=== PATIENT | female | born 1970 | race African-American/Black ===

== ENCOUNTER 2018-03-12 00:27 | Inpatient (IN) | payer BC ==
[~2018-03-12] VITALS: Ht 165.1 cm; Wt 130.5 kg
--- NOTE | ~2018-03-12 | P ---
[facility] [place] [address] PROCEDURE REPORT Name: RAVINDRA AKBA Room #: 449-I [facility] IN .R.#: [id number] Admission: 03/13/18 Attend Phys: Damaris Clay Discharge: Date of : 66 Report #: [id number] THIS REPORT FOR: //name// CC: JAMI Clay BRIEF HISTORY: The patient is a 48-year-old woman with atypical chest pain. PREOPERATIVE DIAGNOSIS: Atypical chest pain. POSTOPERATIVE DIAGNOSES: 1. Grade A erosive esophagitis. 2. Small hiatus hernia. 3. Gastric erosions. MEDICATIONS: Deep sedation with propofol for anesthesia. SPECIMEN: Biopsies of gastric erosions. ESTIMATED BLOOD LOSS: 3 mL. PROCEDURE: EGD with biopsy. FINDINGS: Prior to propofol sedation, procedure of upper endoscopy was discussed with the patient as well as potential risks and its complications. She indicates she understands and desires to proceed. DESCRIPTION OF PROCEDURE: With the patient in left lateral decubitus position, the Olympus video endoscope was inserted in the cervical esophagus under direct vision without difficulty. Examination of this organ through its entire length revealed normal esophageal mucosa down the squamocolumnar junction and in squamocolumnar junction, an erosive column was seen consistent with grade A esophagitis. No strictures or masses were seen. A 2 cm sliding type hiatus hernia was seen as well. The mucosa in the hernia was normal. Scope was advanced into the stomach, was examined on end view as well as retroflexed views. In the antrum, there were several linear erosions. It is noted the patient has been using ibuprofen and also uses BC powder from time to time. A discrete ulcer was not seen. Upon retroflexion, no mass lesions were seen. The pylorus, duodenal bulb and postbulbar sweep were all inspected and noted to be within normal limits. At that point, the scope was slowly withdrawn and careful circumferential views confirmed the above findings. The patient tolerated the procedure well. Biopsies obtained of the gastric mucosa to evaluate for Helicobacter pylori. Scope was withdrawn. The patient tolerated the procedure well. [facility] [address] [place] [address] PROCEDURE REPORT Name: RAVINDRA KABA Room #: 449-I [facility] IN ..#: [id number] Admission: 03/13/18 Attend Phys: Damaris Clay Discharge: Date of : 66 Report #: [id number] DISPOSITION: The patient with atypical chest pain. She has used ibuprofen and BC powder. She also had an abnormal stress test. Dr. Lopez has asked us to proceed with endoscopy today for concerns of bleeding with anticoagulation or any catheterization procedure. She does have esophagitis. Certainly may be a factor with regards to her chest pain. She also has erosions in the antrum, but no ulcers. She should be cautious with use of nonsteroidals. We will have her take pantoprazole 40 mg daily. If needed, she could use a higher dose. We will follow up on biopsies and if positive H. pylori, she may benefit from antibiotic treatment. <ELECTRONICALLY SIGNED> By: Ankush Adair MD 03/14/18 1618 1251 1413 Ankush Adair MD /nt
--- NOTE | ~2018-03-12 | HC ---
[facility] [place] [address] CONSULTATION Name: RAVINDRA KABA Room #: 449-I [facility]..#: [id number] Admission: 03/12/18 Attend Phys: Damaris Clay Discharge: Date of : 66 Report #: [id number] THIS REPORT FOR: //name// CC: Wendy Young DATE OF SERVICE: 03/12/2018 INDICATION: Chest pain. HISTORY OF PRESENT ILLNESS: This is a 48-year-old female with a history of hypertension, diabetes, hypothyroidism, presenting with chest pains. Yesterday, she developed a discomfort under her left breast area, radiating up into the shoulder and in the back. She felt mildly dyspneic during that episode. After about 10 minutes, the pain diminished in intensity. However, it became more intense shortly thereafter. It was not alleviated with stretching or deep inspiration. She presented to the ER for an evaluation. The ECG reveals T-wave inversions in the precordial leads and two sets of troponin levels are negative. There is no history of fever, cough, nausea or diarrhea. She was admitted to [facility] in December with a different type of chest discomfort. The initial evaluation was unremarkable including a negative CT scan of the chest. She did have an echocardiogram that revealed normal LV systolic function. She was supposed to undergo an outpatient stress test; however, this was not completed. PAST MEDICAL HISTORY: Hypertension, new-onset diabetes mellitus, mild hypercholesterolemia. ALLERGIES: None. MEDICATIONS: At home include hydrochlorothiazide, amlodipine 5 mg, losartan 50 mg, and levothyroxine. SOCIAL HISTORY: Denies tobacco use at present. FAMILY HISTORY: Positive for mother with a history of MA in her 50s. REVIEW OF SYSTEMS: A full 10-point review of systems performed. Only the pertinent positives and negatives are described in the HPI. PHYSICAL EXAMINATION: VITAL SIGNS: Blood pressure is 120/70, heart rate is 90 beats per minute. GENERAL APPEARANCE: An overweight female, in no acute distress. HEENT: Normocephalic, atraumatic. Oral mucosa moist. NECK: Supple. LUNGS: Clear to auscultation. [facility] [address] [place] [address] CONSULTATION Name: RAVINDRA KABA Room #: 449-I [facility].#: [id number] Admission: 03/12/18 Attend Phys: Damaris Clay Discharge: Date of : 66 Report #: [id number] CARDIAC: Regular rate and rhythm, S1, S2 positive. ABDOMEN: Soft, nontender. EXTREMITIES: No cyanosis, no edema. ECG reveals sinus rhythm, T-wave inversion in the precordial leads. LABORATORY VALUES: Troponin is negative x 2. LDL level is 138. White count is 11.4, hemoglobin 13.2. Creatinine is 1.2. ASSESSMENT AND PLAN: 1. Chest pain syndrome, difficult to evaluate her chest pain. The differential diagnosis includes ischemia, musculoskeletal, GI related. Given her coronary artery disease risk factors, we will proceed with stress testing. Given her body habitus and abnormal ECG at baseline, we will proceed with a nuclear stress test. 2. Hypertension. The blood pressure is stable on the current regimen. Continue with her medications. 3. Hypercholesterolemia, mildly elevated. Would try to lower the LDL level by making lifestyle modifications. 4. Hypothyroidism, continue with Synthroid. <ELECTRONICALLY SIGNED> By: Zachariah Lopez MD 03/13/18 0807 0940 2154 Zachariah Lopez MD /nt
--- NOTE | ~2018-03-12 | PATH ---
[facility] [address] [place] [address] PATHOLOGY RPT PROCEDURE Name: POONAM BERRIOS Room #: 449-I [facility] IN M.R.#: [id number] Admission: 03/13/18 Date of : 66 Discharge: 03/15/18 Report #: [id number] Path Case #: [id number] [facility] Accession Number: [id number] . 01 Material submitted: . GASTRIC BIOPSY R/O H PYLORI . 01 Clinical history: . Pre-OP DX: Atypical chest pain Post-OP DX: Esophagitis, gastric erosions, small hiatal hernia . 02 Diagnosis: Gastric mucosa, gastric, endoscopic biopsy: - Mild chronic gastritis with features of reactive gastropathy. - Negative for intestinal metaplasia or atrophy. - Negative for Helicobacter pylori (properly controlled immunohistochemical stain performed). (IUV:pit 03/15/2018) QTP/03/15/2018 . 02 Electronically signed: . Hollie Payne MD, Pathologist NPI- [id number] . 01 Gross description: . Received in formalin labeled "Poonam Berrios, gastritis, rule out H. pylori," are 3 segments of sandoval soft tissue measuring 0.9 x 0.6 x 0.3 cm in aggregate dimensions and ranging from 0.1 to 0.4 cm in maximum dimension. The specimen is submitted entirely in cassette A1. (TSD; 03/14/2018) TOB/TOB . 02 Pathologist provided ICD-10: K29.50 . 02 CPT . 097576, T62986 Specimen Comment: A courtesy copy of this report has been sent to Specimen Comment: [phone], , . Specimen Comment: A duplicate report has been generated due to demographic updates. Performed at: [address] [id number] MD Jw Maldonado MD Phone: [phone] Performed at: [address] [address] PATHOLOGY RPT PROCEDURE Name: POONAM BERRIOS Earnest Room #: 449-I [facility] IN M.R.#: [id number] Admission: 03/13/18 Date of : 66 Discharge: 03/15/18 Report #: [id number] Path Case #: [id number] [address] [place] [address] [place] [id number] MD Hollie Payne MD Phone: [phone]
--- NOTE | ~2018-03-12 | EKG ---
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[place] : 1970 Requested By: Bessy Cobb Order Number: [id number] MD: Zachariah Lopez Measurements Intervals [place] Rate: 76 P: 45 [place]: 172 QRS: 10 QRSD: 91 T: -2 QT: 438 QTc: 493 Interpretive Statements Sinus rhythm Ventricular premature complex Nonspecific T abnormalities, anterior leads Borderline prolonged QT interval No previous ECG available for comparison Electronically Signed On 03-12-2018 10:31:14 MANAGER MEDIA RELATIONS by Zachariah Lopez [email or web address] <ELECTRONICALLY SIGNED> By: Zachariah Lopez MD 03/12/18 1031 0751 0751 Zachariah Lopez MD /TATUM
--- NOTE | ~2018-03-12 | CATHLAB ---
[facility] [employer] [place] [address] INVASIVE PROCEDURE REPORT Name: RAVINDRA KABA Room #: 449-I [facility] IN [facility]#: [id number] Admission: 03/13/18 Attend Phys: Damaris Aiken Discharge: 03/15/18 Date of : 66 Date of Service: 03/15/18 1611 Report #: [id number] THIS REPORT FOR: //name// APPROVED REPORT Study performed: 03/15/2018 07:28:22 Patient Details Patient Status: In-Patient Room #: The patient is a 48 year-old female Event Personnel Zachariah Lopez Utility Driver, Claudio South RN RN, Xena Haley, Mathew Parker Scrub Procedures Performed 17078 Initial Mod Sed Same Phys/QHP Gr5y 954910 Hemostasis with Manual pressure Left Heart Cath w/or w/o Coronaries [id number] [facility] Indication Chest pain Risk Factors Obesity, Hypercholesterolemia, Hypertension Procedure Narrative The Right Groin^ was infiltrated with 1% Lidocaine subcutaneous anesthesia. The right femoral accessed via ultrasound guidance. A PINNACLE 4FR Sheath #[id number] sheath was inserted into the RFA^. Coronary angiography was performed using coronary diagnostic catheters. The right coronary system was accessed and visualized with a JR4 catheter. The left coronary system was accessed and visualized with a JL4 catheter. The left ventricle was accessed and visualized with a PIG catheter. Left ventriculogram was performed in 30 degree projection. Hemostasis was obtained with manual pressure following sheath removal without any complications. There was no hematoma. Intraoperative Conscious Sedation Sedation start time: 075 Case end Time: 08 Fentanyl 25 mcg Versed 1.5 mg Fluoro Time: 2.13 minutes [facility] [address] [place] [address] INVASIVE PROCEDURE REPORT Name: SENDYRAVINDRA Earnest Room #: 449-I [facility]#: [id number] Admission: 03/13/18 Attend Phys: Damaris Aiken Discharge: 03/15/18 Date of : 66 Date of Service: 03/15/18 1611 Report #: [id number] Dose: DAP 4718.70 cGycm2 588 mGy Contrast Type and Amount: Omnipaque 70 ml Coronary Angiography The patient's coronary anatomy is co- dominant. Diagnostic Cath Left Main This is a large caliber vessel, patent with no flow-limiting lesions. LAD This is a moderate size caliber vessel, traveling down the anterior wall and wrapping the apex. There are no flow-limiting lesions in the LAD. Within the mid segment, there may be minimal luminal irregularities. Diagonal 1 Small-caliber vessel, with no flow-limiting lesions. Circumflex This is a codominant vessel, patent with no flow-limiting lesions. OM1 This is a patent vessel, with no flow-limiting lesions. OM2 This is a patent vessel, with no flow-limiting lesions. OM3 This is a patent vessel, with no flow-limiting lesions. Right Coronary Moderate size caliber vessel, with no flow-limiting lesions. R PDA This is a small-caliber vessel, patent with no flow-limiting lesions. Left Ventriculography The left ventricle is normal in size with normal contractility. The left ventricular ejection fraction is estimated to be 50-55%. Hemodynamics The aortic pressure is 119/71 mmHg with a mean of 96 mmHg. The left ventricular pressure is 140/10 mmHg with a mean of mmHg. The left ventricular end diastolic pressure is 20 mmHg. Conclusion 1. Angiographically normal coronary arteries. There may be minimal luminal irregularities within the mid segment of the LAD. 2. Normal LV systolic function. 3. Recommend risk factor management. <ELECTRONICALLY SIGNED> By: Zachariah Lopez MD 03/15/18 161 10 10 Zachariah Lopez MD /INF
--- NOTE | ~2018-03-12 | EKG ---
[address] [place] [address] ELECTROCARDIOGRAM REPORT Name: RAVINDRA KABA Room #: 449-I ADM [facility] M.R.#: [id number] Admission: 03/12/18 Attend Phys: Jarred Young MD Discharge: Date of : 66 Report #: [id number] THIS REPORT FOR: //name// [facility] [place] [place] ED Test Date: 2018-03-12 Test Time: 00:28:31 Pat Name: RAVINDRA KABA Department: Room: [facility] Gender: F Receptionist Clerk: CHIOMA : 1970 Requested By: Hector Melissa Order Number: [id number] MD: Zachariah Lopez Measurements Intervals [place] Rate: 113 P: 57 AK: 166 QRS: 26 QRSD: 85 T: 15 QT: 321 QTc: 441 Interpretive Statements Sinus tachycardia Probable left atrial enlargement Borderline T abnormalities, anterior leads No previous ECG available for comparison Electronically Signed On 03-12-2018 10:30:18 POLISHER APPRENTICE by Zachariah Lopez [email or web address] <ELECTRONICALLY SIGNED> By: Zachariah Lopez MD 03/12/18 1030 0028 0028 Zachariah Lopez MD /EPI
[~2018-03-12 00:27] MED LIST: AMOXICILLIN 50500 M1 PO
[2018-03-12 00:30] VITALS: BP 179/89
[2018-03-12] MEDS ORDERED: HYDROCHLOROTH12.5 M1 PO (00:42)
[2018-03-12] MEDS ORDERED: LEVO-T75 MCG PO (00:42)
[2018-03-12] MEDS ORDERED: COZAAR 25 MG TA25 M2 PO (00:43)
[2018-03-12] MEDS ORDERED: NORVASC5 MG PO (00:43)
[2018-03-12 01:14] LABS: ABSOLUTE NEUTROPHILS 8.2 thou/uL (1.4-8.2); BASOPHILS 0.6 % (0.0-2.0); EOSINOPHILS 0.5 % (0.0-3.0); HEMATOCRIT 39.8 % (37.0-47.0); HEMOGLOBIN 13.2 gm/dL (12.0-15.0); LYMPHOCYTES 18.7 % (24.0-44.0); MCH 28.7 pg (26.0-34.0); MCHC 33.1 g/dL (28.0-37.0); MCV 86.5 fL (80.0-100.0); MONOCYTES 8.3 % (1.0-8.0); PLATELET COUNT 384 thou/uL (150-400); POLYS 71.9 % (36.0-66.0); RDW 15.1 % (10.5-14.5); WBC 11.4 thou/uL (4.0-11.0)
[2018-03-12 01:22] LABS: ANION GAP 11 mmol/L (7-16); BUN 19 mg/dL (7-18); CALCIUM 10.9 mg/dL (8.5-10.1); CHLORIDE 99 mmol/L (98-107); CO2 23 mmol/L (21-32); CREATININE 1.2 mg/dL (0.6-1.0); GLUCOSE 137 mg/dL (74-106); POTASSIUM 4.3 mmol/L (3.5-5.1); SODIUM 133 mmol/L (136-145)
[2018-03-12 01:30] LABS: ALBUMIN 3.9 g/dL (3.4-5.0); MAGNESIUM 2.1 mg/dL (1.8-2.4); SGOT 21 U/L (15-37); SGPT 37 U/L (30-65); TOTAL BILIRUBIN 0.2 mg/dL (<0.1-1.0); TOTAL PROTEIN 9.2 g/dL (6.4-8.2); TROPONIN-I <0.06 ng/mL (<0.06)
[2018-03-12 02:49] VITALS: BP 123/74
[2018-03-12 03:52] VITALS: BP 130/77
[2018-03-12 05:51] LABS: CHOLESTEROL 198 mg/dL (<200); HDL CHOLESTEROL 35 mg/dL (>40); LDL CHOLESTEROL 138 mg/dL (<100); TC:HDL 5.7 Ratio (Not establshd); TRIGLYCERIDE 126 mg/dL (<150); VLDL 25 mg/dL (<40)
[2018-03-12 08:00] VITALS: BP 120/65
[2018-03-12 15:58] VITALS: BP 119/66
[2018-03-12 19:28] VITALS: BP 116/67
[2018-03-12 22:05] LABS: GLYCOHEMOGLOBIN (HGB A1C) 7.1 % (4.8-5.6)
[2018-03-13 04:15] VITALS: BP 142/73
[2018-03-13 07:32] VITALS: BP 121/68
[2018-03-13 14:04] VITALS: BP 110/60
[2018-03-13 19:48] VITALS: BP 110/66
[2018-03-14] VITALS (7 sets, daily range): BP systolic 103–1125; BP diastolic 57–82
[2018-03-14] MEDS ORDERED: PROTONIX40 M1 PO (10:14)
[2018-03-15 03:18] VITALS: BP 131/76
[2018-03-15 07:58] VITALS: BP 114/68
[2018-03-15 09:37] VITALS: BP 108/65
[2018-03-15 10:00] VITALS: BP 110/65
[2018-03-15] MEDS ORDERED: TRAMADOL 50 MG50 MG PO (10:03)
[2018-03-15 10:30] VITALS: BP 112/59
[2018-03-15 13:20] VITALS: BP 112/59
== END 2018-03-15 14:47 | disposition home or self-care (01) | DRG 381 ==
LOC: ER 00:27 → 4W 02:08 → EROBS 02:08 → 4W 03:04 → ENTRNSPT 03-15 13:56 → EDTRNSPTSTS 03-15 13:58 → 4W 03-15 14:47
PROVIDERS: Emergency Medicine; Nurse Practitioner Acute Care
DX: K22.10 Ulcer of esophagus without bleeding (principal); Z68.42 Body mass index [BMI] 45.0-49.9, adult; K21.0 Gastro-esophageal reflux disease with esophagitis; I10 Essential (primary) hypertension; E11.9 Type 2 diabetes mellitus without complications; E03.9 Hypothyroidism, unspecified; K44.9 Diaphragmatic hernia without obstruction or gangrene; K25.9 Gastric ulcer, unspecified as acute or chronic, without hemorrhage or perforation; E78.5 Hyperlipidemia, unspecified; E78.00 Pure hypercholesterolemia, unspecified; F41.9 Anxiety disorder, unspecified; E66.9 Obesity, unspecified; T39.395A Adverse effect of other nonsteroidal anti-inflammatory drugs [NSAID], initial encounter; Y92.89 Other specified places as the place of occurrence of the external cause; Z87.891 Personal history of nicotine dependence; Z79.899 Other long term (current) drug therapy; Z82.49 Family history of ischemic heart disease and other diseases of the circulatory system
CPT/HCPCS: 10045; 62110; 62900; 70005

== ENCOUNTER 2020-09-04 16:50 | Emergency (ER) | payer BC, OTHER ==
[~2020-09-04] VITALS: Ht 162.6 cm; Wt 108.9 kg
[~2020-09-04 16:50] MED LIST changes: +COZAAR 25 MG TA25 M2 PO; +HYDROCHLOROTH12.5 M1 PO; +LEVO-T75 MCG PO; +NORVASC5 MG PO; +PROTONIX40 M1 PO; +TRAMADOL 50 MG50 MG PO
[2020-09-04 17:56] LABS: ABSOLUTE NEUTROPHILS 3.7 thou/uL (1.4-8.2); BASOPHILS 0.6 % (0.0-2.0); EOSINOPHILS 1.9 % (0.0-3.0); HEMATOCRIT 41.6 % (37.0-47.0); HEMOGLOBIN 13.6 gm/dL (12.0-15.0); LYMPHOCYTES 37.4 % (24.0-44.0); MCH 27.8 pg (26.0-34.0); MCHC 32.7 g/dL (28.0-37.0); PLATELET COUNT 429 thou/uL (150-400); POLYS 53.1 % (36.0-66.0); RBC 4.89 mil/uL (4.20-5.00); RDW 16.3 % (10.5-14.5)
[2020-09-04 17:59] LABS: CALCIUM 9.8 mg/dL (8.5-10.1); CREATININE 0.9 mg/dL (0.6-1.0)
[2020-09-04 22:06] VITALS: BP 127/73
[2020-09-04] MEDS ORDERED: MECLIZINE HCL25 MG PO (22:15)
--- NOTE | 2020-09-05 06:52 | EKG ---
[facility] [place] [address] ELECTROCARDIOGRAM REPORT Name: RAVINDRA KABA [facility] [id number] Admission: 09/04/20 Attend Phys: Discharge: 09/04/20 Date of : 66 Report #: [id number] [facility] ED Test Date: 2020-09-04 Test Time: 17:00:06 Pat Name: RAVINDRA KBAA Department: Room: Gender: F Rn Bone Marrow Transplant: john : 1970 Requested By: Pushpa Godinez Order Number: [id number] MD: Pedro Stone Measurements Intervals [place] Rate: 105 P: 65 [place]: 145 QRS: 17 QRSD: 60 T: 19 QT: 387 QTc: 512 Interpretive Statements Sinus tachycardia Probable left atrial enlargement Borderline T abnormalities, anterior leads Prolonged QT interval Compared to ECG 03/12/2018 07:51:05 Sinus rhythm no longer present Ventricular premature complex(es) no longer present T-wave abnormality still present Electronically Signed On 09-05-2020 6:52:19 CDT by Pedro Stone [email or web address] <ELECTRONICALLY SIGNED> By: Pedro Stone MD, [facility] 09/05/20 0652 1700 1700 Pedro Stone MD, [facility] /EPI
== END 2020-09-04 22:46 | disposition home or self-care (01) ==
LOC: ER 16:50
PROVIDERS: Emergency Medicine
DX: R42 Dizziness and giddiness (principal); R11.0 Nausea; H53.8 Other visual disturbances; H92.09 Otalgia, unspecified ear; R51.9 Headache, unspecified; I10 Essential (primary) hypertension; E11.9 Type 2 diabetes mellitus without complications; E05.90 Thyrotoxicosis, unspecified without thyrotoxic crisis or storm; E03.9 Hypothyroidism, unspecified; Z87.891 Personal history of nicotine dependence

== ENCOUNTER 2020-11-05 15:36 | Emergency (ER) | payer BC, OTHER ==
[~2020-11-05] VITALS: Ht 162.6 cm; Wt 108.9 kg
[~2020-11-05 15:36] MED LIST changes: +MECLIZINE HCL25 MG PO
[2020-11-05 17:56] VITALS: BP 139/82
[2020-11-05] MEDS ORDERED: TRANSDERM-SCOP1 EACH TRANSDERM (19:40)
--- NOTE | 2020-11-06 07:16 | EKG ---
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: : 1970 Requested By: Thang Payne Order Number: [id number] MD: Pedro Stone Measurements Intervals [place] Rate: 66 P: 15 IA: 150 QRS: -3 QRSD: 81 T: 2 QT: 354 QTc: 371 Interpretive Statements Sinus rhythm Left ventricular hypertrophy Borderline T abnormalities, inferior leads Compared to ECG 09/04/2020 17:00:06 Left ventricular hypertrophy now present Sinus tachycardia no longer present Prolonged QT interval no longer present T-wave abnormality still present Electronically Signed On 11-06-2020 7:15:56 CDT by Pedro Stone [email or web address] <ELECTRONICALLY SIGNED> By: Pedro Stone MD, [facility] 11/06/2015 163 163 Pedro Stone MD, [facility] /EPI
== END 2020-11-05 20:30 | disposition home or self-care (01) ==
LOC: ER 15:36
DX: R42 Dizziness and giddiness (principal); I10 Essential (primary) hypertension; E11.9 Type 2 diabetes mellitus without complications; E03.9 Hypothyroidism, unspecified; F17.210 Nicotine dependence, cigarettes, uncomplicated; Z90.710 Acquired absence of both cervix and uterus